=== PATIENT | female | born 1995 | race Native Hawaiian/Other Pacific Islander ===

== ENCOUNTER 2017-09-05 10:45 | Emergency (ER) | payer SELFPAY ==
[2017-09-05] MEDS ORDERED: Al Hydrox/Mg Hydrox/Simet LIQ* 30 ML UDC PO ONE (11:00)
[2017-09-05] MEDS ORDERED: Ketorolac INJ* 30 MG/ML 1 ML VIAL IV ONE (11:00)
[2017-09-05] MEDS ORDERED: Ondansetron INJ* 2 MG/ML VIAL IV ONE (11:00)
[2017-09-05] MEDS ORDERED: NS 0.9% 1000 ML* 1,000 ML IV ONE (11:00)
[2017-09-05 11:37] LABS: Hematocrit 40 % (35-47); Hemoglobin 13.5 g/dl (12.0-16.0); Mean Corpuscular HGB Conc 34 g/dl (31-36); Mean Corpuscular Hemoglobin 30 pg (27-31); Mean Corpuscular Volume 88 fL (80-97); Mean Platelet Volume 9 um3 (7.4-10.4); Red Blood Count 4.54 10^6/ul (4.0-5.4); Red Cell Distribution Width 13 % (10.5-15); White Blood Count 8.7 10^3/ul (3.5-10.8)
[2017-09-05 11:52] LABS: ALT 14 U/L (7-52); AST 29 U/L (13-39); Albumin 4.6 g/dL (3.2-5.2); Alkaline Phosphatase 53 U/L (34-104); Anion Gap 9 mmol/L (2-11); BUN/Creatinine Ratio 12.5 (8-20); Blood Urea Nitrogen 10 mg/dL (6-24); C Reactive Protein < 1.00 mg/L (< 5.00); CO2 Carbon Dioxide 25 mmol/L (22-32); Calcium 9.4 mg/dL (8.6-10.3); Chloride 100 mmol/L (101-111); Creatine Kinase 157 U/L (10-223); EGFR African American 118.8 (>60); EGFR Non-African American 92.4 (>60); Globulin 2.6 g/dL (2-4); Glucose 92 mg/dL (70-100); Lipase 36 U/L (11.0-82.0); Potassium 3.8 mmol/L (3.5-5.0); Sodium 134 mmol/L (133-145); Total Protein 7.2 g/dL (6.4-8.9)
[2017-09-05 13:04] VITALS: BP 106/59
--- NOTE | 2017-09-06 09:02 | ED ---
Abdominal Pain/Female - HPI Summary HPI Summary: Patient presents s/p drinking ETOH last evening and c/o abdominal pain, nausea and fatigue. She states she drinks often (every weekend or so) and has never had this pain before. She c/o diffuse pain throughout her abdomen with feelings of BM. She has had 2 episodes of diarrhea this AM, still feels like she needs to go, but she cannot. Denies vomiting. Denies urinary symptoms or vaginal discharge. Symptoms began this morning, has remained stable and notes to a 8/10 pain in the abdomen. Denies flu like symptoms including fevers, sweats or chills. Diarrhea is brown and loose. Denies recent abx use. Denies travel, camping. Notes to several drinks of ETOH last evening and has not had many fluids since that time. - History of Current Complaint Chief Complaint: EDAbdPain Stated Complaint: ABD PAIN Time Seen by Provider: 09/05/17 10:54 Hx Obtained From: Patient ?: No Onset/Duration: Sudden Onset Timing: Constant Severity Initially: Moderate Severity Currently: Moderate Pain Intensity: 8 Pain Scale Used: 0-10 Numeric Location: Diffuse Radiates: No Character: Cramping Aggravating Factor(s): Movement Alleviating Factor(s): Bowel Movement Associated Signs and Symptoms: Positive: Nausea - Risk Factors Ectopic Risk Factor: Negative Ovarian Torsion Risk Factor: Reproductive Age Allergies/Adverse Reactions: Allergies Allergy/AdvReac Type Severity Reaction Status Date / Time Penicillins Allergy Unknown Verified 09/05/17 11:10 Reaction Details PMH/Surg Hx/FS Hx/Imm Hx Previously Healthy: Yes - Immunization History Hx Pertussis Vaccination: No Immunizations Up to Date: Unable to Obtain/Confirm Infectious Disease History: No Infectious Disease History: Denies: Traveled Outside the [place] in Last 30 Days - Social History Occupation: Student Lives: Dormitory/Roommates Alcohol Use: Weekly Hx Substance Use: No Substance Use Type: Reports: None Hx Tobacco Use: No Smoking Status (MU): Never Smoked Tobacco Review of Systems Constitutional: Negative Eyes: Negative Cardiovascular: Negative Respiratory: Negative Positive: Diarrhea, Nausea Genitourinary: Negative Positive: no symptoms reported, see HPI Musculoskeletal: Negative Neurological: Negative All Other Systems Reviewed And Are Negative: Yes Physical Exam Triage Information Reviewed: Yes Vital Signs On Initial Exam: Initial Vitals Temp Pulse Resp BP Pulse Ox 97.2 F 84 20 118/77 100 09/05/17 10:48 09/05/17 10:48 09/05/17 10:48 09/05/17 10:48 09/05/17 10:48 Vital Signs Reviewed: Yes Appearance: Positive: Well-Appearing, Well-Nourished Skin: Positive: Warm, Skin Color Reflects Adequate Perfusion Head/Face: Positive: Normal Head/Face Inspection Eyes: Positive: EOMI, BEV Neck: Positive: Supple, No Lymphadenopathy Respiratory/Lung Sounds: Positive: Clear to Auscultation, Breath Sounds Present Cardiovascular: Positive: Normal, Pulses are Symmetrical in both Upper and Lower Extremities Abdomen Description: Positive: Nontender, No Organomegaly, Soft. Negative: CVA Tenderness (R), CVA Tenderness (L), Distended, McBurney's Point Tenderness, Pulsatile Mass, Splenomegaly Bowel Sounds: Positive: Present Musculoskeletal: Positive: Normal, Strength/ROM Intact Neurological: Positive: Normal, Sensory/Motor Intact, Alert, Oriented to Person Place, Time Psychiatric: Positive: Normal AVPU Assessment: Alert - [place] Coma Scale Coma Scale Total: 15 Diagnostics - Vital Signs Vital Signs Temp Pulse Resp BP Pulse Ox 09/05/17 13:02 99.5 F 86 16 106/59 96 09/05/17 10:48 97.2 F 84 20 118/77 100 - Laboratory Lab Results: Lab Results 09/05/17 09/05/17 09/05/17 Range/Units 11:25 11:25 11:25 WBC 8.7 (3.5-10.8) 10^3/ul RBC 4.54 (4.0-5.4) 10^6/ul Hgb 13.5 (12.0-16.0) g/dl Hct 40 (35-47) % MCV 88 (80-97) fL MCH 30 (27-31) pg MCHC 34 (31-36) g/dl RDW 13 (10.5-15) % Plt Count 221 (150-450) 10^3/ul MPV 9 (7.4-10.4) um3 Neut % (Auto) 87.9 H (38-83) % Lymph % (Auto) 6.7 L (25-47) % Turner % (Auto) 4.4 (1-9) % Eos % (Auto) 0.8 (0-6) % Baso % (Auto) 0.2 (0-2) % Absolute Neuts (auto) 7.7 (1.5-7.7) 10^3/ul Absolute Lymphs (auto) 0.6 L (1.0-4.8) 10^3/ul Absolute Monos (auto) 0.4 (0-0.8) 10^3/ul Absolute Eos (auto) 0.1 (0-0.6) 10^3/ul Absolute Basos (auto) 0 (0-0.2) 10^3/ul Absolute Nucleated RBC 0 10^3/ul Nucleated RBC % 0 Sodium 134 (133-145) mmol/L Potassium 3.8 (3.5-5.0) mmol/L Chloride 100 L (101-111) mmol/L Carbon Dioxide 25 (22-32) mmol/L Anion Gap 9 (2-11) mmol/L BUN 10 (6-24) mg/dL Creatinine 0.80 (0.51-0.95) mg/dL Est GFR ( Amer) 118.8 (>60) Est GFR (Non-Af Amer) 92.4 (>60) BUN/Creatinine Ratio 12.5 (8-20) Glucose 92 (70-100) mg/dL Lactic Acid 1.8 (0.5-2.0) mmol/L Calcium 9.4 (8.6-10.3) mg/dL Total Bilirubin 0.30 (0.2-1.0) mg/dL AST 29 (13-39) U/L ALT 14 (7-52) U/L Alkaline Phosphatase 53 (34-104) U/L Total Creatine Kinase 157 (10-223) U/L C-Reactive Protein < 1.00 (< 5.00) mg/L Total Protein 7.2 (6.4-8.9) g/dL Albumin 4.6 (3.2-5.2) g/dL Globulin 2.6 (2-4) g/dL Albumin/Globulin Ratio 1.8 (1-3) Lipase 36 (11.0-82.0) U/L Beta HCG, Quant < 0.60 mIU/mL Result Diagrams: 09/05/17 11:25 09/05/17 11:25 Lab Statement: Any lab studies that have been ordered have been reviewed, and results considered in the medical decision making process. Abdominal Pain Fem Course/Dx - Course Course Of Treatment: Patient presents with diffuse abd pain, nausea and diarrhea after ETOH use last evening. She is given 2L fluids. Offered maalox, zofran and toradol - patient declined. After fluids, patient states she is feeling much better and has no pain on discharge. Nausea improved. She is OK to be discharged home with return precautions. Likely this is dehydration from ETOH. - Diagnoses Differential Diagnosis: Positive: Other - dehydration, ETOH Provider Diagnoses: Dehydration Discharge - Discharge Plan Condition: Stable Disposition: HOME Patient Education Materials: Dehydration (ED) Referrals: [facility] - Moris [Primary Care Provider] - Additional Instructions: Please follow up with [facility] for any worsening symptoms. Drink plenty of fluids today - gatorade is best. [place] diet including toast, applesauce, rice, and bananas are good choices.
== END 2017-09-05 13:02 | disposition home or self-care (01) ==
LOC: ED 10:45
DX: E86.0 Dehydration (principal); R11.0 Nausea; R53.83 Other fatigue; Z32.02 Encounter for pregnancy test, result negative; Z88.0 Allergy status to penicillin
CPT/HCPCS: 36415; 80053; 82550; 83605; 83690; 84702; 85025; 86140; 96360; 99282; A9270-GY; J1885; J2405

== ENCOUNTER 2018-03-12 00:24 | Emergency (ER) | payer BC ==
[2018-03-12] MEDS ORDERED: Ondansetron INJ* 2 MG/ML VIAL IV ONE (01:34)
[2018-03-12] MEDS ORDERED: NS 0.9% 1000 ML* 1,000 ML IV ONE (01:35)
[2018-03-12 01:59] LABS: ABS Basophils 0 10^3/ul (0-0.2); ABS Eosinophils 0 10^3/ul (0-0.6); ABS Lymphocytes 0.2 10^3/ul (1.0-4.8); ABS Monocytes 0.4 10^3/ul (0-0.8); ABS Neutrophils 13.1 10^3/ul (1.5-7.7); ABS Nucleated RBC 0 10^3/ul; Eosinophil % 0.3 % (0-6); Hematocrit 37 % (35-47); Hemoglobin 12.4 g/dl (12.0-16.0); Lymphocyte % 1.2 % (25-47); Mean Corpuscular HGB Conc 33 g/dl (31-36); Mean Corpuscular Hemoglobin 29 pg (27-31); Mean Corpuscular Volume 87 fL (80-97); Mean Platelet Volume 7.7 um3 (7.4-10.4); Nucleated Red Blood Cells % 0; Platelet Count 322 10^3/ul (150-450); Red Blood Count 4.25 10^6/ul (4.0-5.4); Red Cell Distribution Width 13 % (10.5-15); White Blood Count 13.8 10^3/ul (3.5-10.8)
[2018-03-12 02:09] LABS: EGFR Non-African American 98.5 (>60)
[2018-03-12] MEDS ORDERED: Metoclopramide IV* 5 MG/ML 2 ML VIAL ONE (02:45)
[2018-03-12] MEDS ORDERED: Metoclopramide IV* 5 MG/ML 2 ML VIAL IV SLOW PU ONE (02:48)
[2018-03-12 04:01] VITALS: BP 119/64
--- NOTE | 2018-03-12 20:52 | ED ---
Lena Fields Nilda, scribed for Jennifer Dyer MD on 03/12/18 at 0137 . GI/ HPI - HPI Summary HPI Summary: This patient is a 22 year old F presenting to [facility] with a chief complaint of constant nausea and vomiting (8x) in the past few hours. Pt admits to taking a bite of marijuana edible cookie. She notes this was the second time shes had marijuana. The patient rates the pain 0/10 in severity. Symptoms aggravated by PO intake and alleviated by nothing. Patient reports abd pain secondary to vomiting as well as dehydration. Patient denies ETOH intake. Allergies to Penicillin. LNMP 2 weeks ago. - History of Current Complaint Chief Complaint: EDNauseaVomitDiarrh Time Seen by Provider: 03/12/18 01:06 Stated Complaint: VOMITTING Hx Obtained From: Patient Onset/Duration: Started Hours Ago, Still Present Timing: Constant Pain Intensity: 0 Location of Pain: Diffuse Associated Signs and Symptoms: Positive: Other: - N/V, abd pain secondary to vomiting, dehydration Aggravating Factor(s): Food Alleviating Factor(s): Nothing - Allergy/Home Medications Allergies/Adverse Reactions: Allergies Allergy/AdvReac Type Severity Reaction Status Date / Time Penicillins Allergy Unknown Verified 03/12/18 00:27 Reaction Details Home Medications: Home Medications NK [No Home Medications Reported] 03/12/18 [History Confirmed 03/12/18] PMH/Surg Hx/FS Hx/Imm Hx Sensory History: Denies: Hx Legally Blind EENT History: Denies: Hx Deafness Psychiatric History: Reports: Hx Eating Disorder - anorexia - Immunization History Immunizations Up to Date: Yes Infectious Disease History: No Infectious Disease History: Denies: Traveled Outside the [place] in Last 30 Days - Family History Known Family History: Negative: Cardiac Disease, Hypertension - Social History Occupation: Student Alcohol Use: Weekly Hx Substance Use: No Substance Use Type: Reports: None Hx Tobacco Use: No Smoking Status (MU): Never Smoked Tobacco Review of Systems Positive: Other - dehydration Negative: Shortness Of Breath Positive: Abdominal Pain - secondary to vomiting, Vomiting, Nausea All Other Systems Reviewed And Are Negative: Yes Physical Exam - Summary Physical Exam Summary: GENERAL: Patient is a well developed and nourished F who is lying comfortable in the stretcher. Patient is not in any acute respiratory distress. HEAD AND FACE: Normocephalic EYES: PERRLA, EOMI x 2. EARS: Hearing grossly intact. MOUTH: Oropharynx within normal limits. NECK: Supple, trachea is midline, no adenopathy, no JVD, no carotid bruit. CHEST: Symmetric, no tenderness at palpation LUNGS: Clear to auscultation bilaterally. No wheezing or crackles. CVS: Regular rate and rhythm, S1 and S2 present, no murmurs or gallops appreciated. ABDOMEN: Soft, non-tender. Bowel sounds are normal. No abdominal abnormal pulsations. EXTREMITIES: Full ROM in all major joints, no edema, no cyanosis or clubbing. NEURO: Alert and oriented x 3. No acute neurological deficits. Speech is normal and follows commands. SKIN: Dry and warm Triage Information Reviewed: Yes Vital Signs On Initial Exam: Initial Vitals Temp Pulse Resp BP Pulse Ox 98.1 F 101 18 115/81 99 03/12/18 00:26 03/12/18 00:26 03/12/18 00:26 03/12/18 00:26 03/12/18 00:26 Vital Signs Reviewed: Yes Diagnostics - Vital Signs Vital Signs Temp Pulse Resp BP Pulse Ox 03/12/18 00:26 98.1 F 101 18 115/81 99 - Laboratory Result Diagrams: 03/12/18 01:35 03/12/18 01:35 Lab Statement: Any lab studies that have been ordered have been reviewed, and results considered in the medical decision making process. GIGU Course/Dx - Course Assessment/Plan: Labs remarkable for BUN creatinine ratio 21.3 consistent with dehydration. Pt given liter of IV fluids, Reglan and Zofran with resolutions of symptoms .Pts vomiting most likely induced by marijuana. Results discussed with pt. Hemodynamic stable and safe for D/C home with return precautions. Pt will otherwise f/u with PCP. - Diagnoses Provider Diagnoses: Nausea & vomiting Discharge - Sign-Out/Discharge Documenting (check all that apply): Discharge - home - Discharge Plan Condition: Stable Disposition: HOME Patient Education Materials: Acute Nausea and Vomiting (ED) Referrals: [facility] - Moris FERNANDEZ [Primary Care Provider] - 2 Days Additional Instructions: RETURN TO THE EMERGENCY DEPARTMENT FOR CHANGING OR WORSENING SYMPTOMS. The documentation as recorded by the Lena husain Nilda accurately reflects the service I personally performed and the decisions made by , Jennifer Dyer MD.
== END 2018-03-12 04:00 | disposition home or self-care (01) ==
LOC: ED 00:24
DX: R11.2 Nausea with vomiting, unspecified (principal); Z32.02 Encounter for pregnancy test, result negative; Z88.0 Allergy status to penicillin
CPT/HCPCS: 36415; 80053; 84702; 85025; 96374; 96375; 99282; J2405; J2765

== ENCOUNTER 2019-11-02 09:07 | Emergency (ER) | payer SELFPAY ==
--- NOTE | 2019-11-02 09:40 | ED ---
Upper Extremity Pain - HPI Summary HPI Summary: This patient is a 24 year old F presenting to ED with a chief complaint of L wrist pain described as sharp since last night. Patient was using shoes with wheels in them and she fell forwards last night. Patient reports she was drinking alcohol last night, so she did not fully register the pain, which is worse this morning. The patient rates the pain 6/10 in severity. Symptoms aggravated by nothing. Symptoms alleviated by movement of the wrist. Patient denies fever. - History of Current Complaint Chief Complaint: EDFall Stated Complaint: LEFT WRIST INJURY Time Seen by Provider: 11/02/19 09:28 Hx Obtained From: Patient Mechanism Of Injury: Fall From A Standing Position Onset/Duration: Started Hours Ago - Last night, Traumatic, Still Present, Worse Since Timing: Constant, Lasting Hours - Since last night Severity Initially: Moderate Severity Currently: Moderate Pain Location: Wrist - Left, Hand - Left Character: Sharp Aggravating Factor(s): Movement Alleviating Factor(s): Nothing Associated Signs & Symptoms: Positive: Swelling. Negative: Fever - Allergies/Home Medications Allergies/Adverse Reactions: Allergies Allergy/AdvReac Type Severity Reaction Status Date / Time Penicillins Allergy Unknown Verified 11/02/19 09:13 Reaction Details Home Medications: Home Medications Dextroamphetamine/Amphetamine [Dextroamp-Amphetamin 20 mg Tab] 60 mg PO DAILY [History Confirmed 11/02/19] Fluoxetine HCl 40 mg PO DAILY 11/02/19 [History Confirmed 11/02/19] PMH/Surg Hx/FS Hx/Imm Hx Endocrine/Hematology History: Denies: Hx Diabetes Cardiovascular History: Denies: Hx Hypercholesterolemia, Hx Hypertension Sensory History: Denies: Hx Legally Blind, Hx Deafness Opthamlomology History: Denies: Hx Legally Blind Psychiatric History: Reports: Hx Attention Deficit Hyperactivity Disorder, Hx Eating Disorder - anorexia - Surgical History Surgery Procedure, Year, and Place: Denies Infectious Disease History: No Infectious Disease History: Denies: Traveled Outside the [place] in Last 30 Days - Family History Known Family History: Negative: Cardiac Disease, Hypertension - Social History Alcohol Use: Weekly Hx Substance Use: Yes Substance Use Type: Reports: Marijuana Hx Tobacco Use: Yes Smoking Status (MU): Current Every Day Smoker Review of Systems Negative: Fever Musculoskeletal: Other - Left wrist pain All Other Systems Reviewed And Are Negative: Yes Physical Exam - Summary Physical Exam Summary: Constitutional: Well-developed, Well-nourished, Alert. (-) Distressed Skin: Warm, Dry HENT: Normocephalic; Atraumatic Eyes: Conjunctiva normal Neck: Musculoskeletal ROM normal neck. (-) JVD, (-) Stridor, (-) Tracheal deviation Cardio: Rhythm regular, rate normal, Heart sounds normal; Intact distal pulses; The pedal pulses are 2+ and symmetric. Radial pulses are 2+ and symmetric. Pulmonary/Chest wall: Effort normal. (-) Respiratory distress, (-) Wheezes, (-) Rales Abd: Soft, (-) tenderness, (-) Distension, (-) Guarding, (-) Rebound Musculoskeletal: (-) Edema. Tenderness at the proximal end of the third and fourth MCP. There is minimal tenderness to the wrist. Forearm, elbow, and remaining part of upper extremity are all negative. Back Panel Padder strength, motor, sensory, capillary refill distally of the left hand are all normal. Neuro: Alert, Oriented x3 Psych: Mood and affect Normal Triage Information Reviewed: Yes Vital Signs On Initial Exam: Initial Vitals Temp Pulse Resp BP Pulse Ox 98.9 F 118 16 109/71 95 11/02/19 09:09 11/02/19 09:09 11/02/19 09:09 11/02/19 09:09 11/02/19 09:09 Vital Signs Reviewed: Yes Procedures - Sedation Patient Received Moderate/Deep Sedation with Procedure: No Diagnostics - Vital Signs Vital Signs Temp Pulse Resp BP Pulse Ox 11/02/19 09:09 98.9 F 118 16 109/71 95 - Laboratory Lab Statement: Any lab studies that have been ordered have been reviewed, and results considered in the medical decision making process. - Radiology L wrist XR Radiology Interpretation Completed By: Radiologist Summary of Radiographic Findings: NO FRACTURE OF THE WRIST IS NOTED. Dr. Colmenares has reviewed this radiology report. L hand XR Radiology Interpretation Completed By: Radiologist Summary of Radiographic Findings: No fracture of the left wrist or hand is noted. Dr. Colmenares has reviewed this radiology report. Re-Evaluation - Re-Evaluation First Eval Re-Evaluation Time: 10:27 Comment: Discussed results with patient. Patient will be discharged home with dx of left wrist sprain. Patient understands and agrees with this plan. Course/Dx - Course Course Of Treatment: This patient is a 24 year old F presenting to ED with a chief complaint of L wrist pain described as sharp since last night. L wrist XR revealed: NO FRACTURE OF THE WRIST IS NOTED. L hand XR revealed: No fracture of the left wrist or hand is noted. I will put patient in a cock up splint and discharge patient with dx of left wrist sprain. Patient understands and agrees with this plan. - Diagnoses Provider Diagnoses: Left wrist sprain Discharge ED - Sign-Out/Discharge Documenting (check all that apply): Patient Departure - Discharge - Discharge Plan Condition: Stable Disposition: HOME Patient Education Materials: Wrist Sprain (ED) Referrals: [facility] - Moris FERNANDEZ [Primary Care Provider] - 3 Days Additional Instructions: Please follow up with your primary care provider in 2-3 days. PLEASE RETURN TO THE ER FOR WORSENING OR CHANGING SYMPTOMS. - Billing Disposition and Condition Condition: STABLE Disposition: Home - Attestation Statements Document Initiated by Scribe: Yes Documenting Scribe: John Kramer Provider For Whom Gabriel is Documenting (Include Credential): Franklyn Colmenares MD Scribe Attestation: IJohn, scribed for Franklyn Colmenares MD on 11/02/19 at 1851. Scribe Documentation Reviewed: Yes Provider Attestation: The documentation as recorded by the John husain accurately reflects the service I personally performed and the decisions made by me, Franklyn Colmenares MD Status of Scribe Document: Viewed
[2019-11-02 10:20] VITALS: BP 108/75
== END 2019-11-02 10:29 | disposition home or self-care (01) ==
LOC: ED 09:07
DX: S63.502A Unspecified sprain of left wrist, initial encounter (principal); W19.XXXA Unspecified fall, initial encounter; Y92.9 Unspecified place or not applicable; F90.9 Attention-deficit hyperactivity disorder, unspecified type; F17.200 Nicotine dependence, unspecified, uncomplicated; Z79.899 Other long term (current) drug therapy; Z88.0 Allergy status to penicillin
CPT/HCPCS: 99282